=== PATIENT | female | born 1970 | race Caucasian/White ===

== ENCOUNTER 2021-03-14 16:32 | Inpatient (IN) | payer OTHER ==
[~2021-03-14] VITALS: Ht 162.6 cm; Wt 62.6 kg
--- NOTE | 2021-03-14 16:32 | NUR ---
PT BIB SELF C/O LLQ ABDOMINAL AND R FLANK PAIN STARTED ALST NIGHT. 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 WILL CONTINUE TO MONITOR.
--- NOTE | 2021-03-14 16:54 | NUR ---
SEEN AND EXMAINED BY .
[2021-03-14] MEDS ORDERED: MORPHINE SULFATE INJ 4 MG/ML DISP.SYRIN ONE (16:59)
[2021-03-14] MEDS ORDERED: ONDANSETRON HCL/PF 4 MG/2 ML VIAL ONE (16:59)
[2021-03-14] MEDS ORDERED: KETOROLAC TROMETHAMINE 15 MG/ML VIAL ONE (16:59)
[2021-03-14] MEDS ORDERED: KETOROLAC TROMETHAMINE INJ 30 MG/ML VIAL IV ONE (17:00)
[2021-03-14] MEDS ORDERED: IV NS 0.9% 1,000 ML BAG IV ONE ×2 (17:00→20:00)
[2021-03-14] MEDS ORDERED: MORPHINE SULFATE INJ 2 MG/ML DISP.SYRIN IV ONE (17:00)
[2021-03-14] MEDS ORDERED: ONDANSETRON HCL/PF 4 MG/2 ML VIAL IVP ONE ×2 (17:00→19:30)
--- NOTE | 2021-03-14 17:00 | NUR ---
TORADOL GIVEN. PER PT HAD AN HYSTERECTOMY.
--- NOTE | 2021-03-14 17:00 | NUR ---
IV LINE ESTABLISHED BLOOD DRAWN AND SENT TO LAB.
[2021-03-14 17:21] LABS: BASOPHILS # (AUTO) 0.1 K/uL (0.0-0.2); BASOPHILS % (AUTO) 0.9 % (0.0-2.0); EOSINOPHILS % (AUTO) 1.4 % (0.0-6.0); HEMATOCRIT 36 % (33-45); HEMOGLOBIN 11.5 g/dL (11.5-14.8); LYMPHOCYTES # (AUTO) 1.7 K/uL (0.8-4.8); LYMPHOCYTES % (AUTO) 18.9 % (20.0-44.0); MEAN CORPUSCULAR HGB CONC 32 g/dl (31.0-36.0); MEAN CORPUSCULAR VOLUME 81 fL (82-100); MONOCYTES # (AUTO) 0.8 K/uL (0.1-1.30); MONOCYTES % (AUTO) 8.6 % (2.0-12.0); NEUTROPHILS # (AUTO) 6.1 K/uL (1.8-8.9); NEUTROPHILS % (AUTO) 70.2 % (43.0-81.0); PLATELET COUNT (AUTO) 290 K/uL (150-450); RED BLOOD CELL COUNT(AUTO) 4.38 MIL/uL (4.0-5.2); WHITE BLOOD COUNT (AUTO) 8.8 K/uL (4.3-11.0)
[2021-03-14 17:46] LABS: BILIRUBIN,URINE NEGATIVE (NEGATIVE); COLOR,URINE YELLOW (YELLOW); LEUKOCYTE ESTERASE ,URINE NEGATIVE (NEGATIVE); NITRITE, URINE NEGATIVE (NEGATIVE); PROTEIN,URINE NEGATIVE (NEGATIVE); UGLUCOSE NEGATIVE (NEGATIVE); UROBILINOGEN,URINE 0.2 EU/dL (0.2)
--- NOTE | 2021-03-14 18:00 | NUR ---
PT IS WHEELED TO CT SCAN VIA [facility].
[2021-03-14 18:13] LABS: ALBUMIN 3.6 g/dL (3.4-5.0); BILIRUBIN,DIRECT 0.1 mg/dL (0.0-0.2); BILIRUBIN,TOTAL 0.3 mg/dL (0.2-1.0); CALCIUM, SERUM 8.8 mg/dL (8.5-10.1); CREATININE 0.9 mg/dL (0.6-1.3); TOTAL PROTEIN, SERUM 7.4 g/dL (6.4-8.2)
[2021-03-14] MEDS ORDERED: HYDROMORPHONE INJ 2 MG/ML DISP.SYRIN IV ONE (19:30)
--- NOTE | 2021-03-14 19:44 | NUR ---
PT DECLINED MORPHINE AND DILAUDID. C/O PAIN 04/24 AT THIS TIME.
[2021-03-14] MEDS ORDERED: IV LR 1000 ML 1,000 ML IV PRN (20:00)
[2021-03-14] MEDS ORDERED: HYDROMORPHONE INJ 2 MG/ML DISP.SYRIN IV PRN (20:00)
[2021-03-14] MEDS ORDERED: ACETAMINOPHEN 325 MG TABLET PO PRN (20:00)
[2021-03-14] MEDS ORDERED: Z GUARD REMEDY 4 OZ OINT TP PRN (20:00)
[2021-03-14] MEDS ORDERED: CEFAZOLIN 1 GM VIAL IM ONE (20:30)
[2021-03-14] MEDS ORDERED: HYDROMORPHONE 1 MG/1 ML DISP.SYRIN ONE (20:47)
[2021-03-14] MEDS ORDERED: CEFAZOLIN 2 GM in IV D5W 100 ML IV SCH (21:00)
[2021-03-14] MEDS ORDERED: CEFAZOLIN 1 GM in IV D5W 50 ML IV ONE (21:00)
[2021-03-14] MEDS ORDERED: ONDANSETRON HCL/PF - ER 4 MG/2 ML VIAL IV ONE (21:30)
--- NOTE | 2021-03-14 22:56 | NUR ---
spoke with Nick Almanza regarding Ancef order. 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 Nick instruct that Ancef can be given prior to surgery. He is also aware that Dr. Church ordered a dose and will be be given tonight.
--- NOTE | 2021-03-14 23:05 | NUR ---
REPORT GIVEN TO TJ
--- NOTE | 2021-03-14 23:40 | NUR ---
PATIENT TRANSFERRED, VSS, NO ACUTE DISTRESS NOTED.
--- NOTE | 2021-03-14 23:41 | NUR ---
PT TRANSPORTED TO ROOM 316 VIA GURNEY. ALL PT BELONGINGS AND PT CHART TRANSFERRED WITH PATIENT. V/S STABLE AT TIME OF TRANSFER.
--- NOTE | 2021-03-14 23:45 | NUR ---
POEM WRITER NOTE RECEIVED PT FROM Nya VIA [facility]JGAN ACCOMPANIED BY RN/STAFF. PT AWAKE, ALERT, ABLE TO VERBALIZE ALL NEEDS. RESPIRATIONS EVEN/UNLABORED. ON RA AND STABLE. PT REPORTS ABD PAIN IS TOLERABLE AT THIS TIME. IV SITE: R-AC INTACT/PATENT/FLUSHES WELL. ORIENTED TO UNIT AND STAFF AND MADE COMFORTABLE IN BED. PT FOR SURGERY TOMORROW AND SHE VERBALIZED UNDERSTANDING. NO ACUTE DISTRESS NOTED. SAFETY MEASURES IN PLACE, BED IN LOWEST LOCKED POSITION, S/R UPX2, CALL LIGHT WITHIN REACH. WILL CONT TO MONITOR.
[2021-03-15] VITALS: BP 114/62
--- NOTE | 2021-03-15 01:04 | NUR ---
RN NOTE PER Nya RIOS, TO CALL IN-HOUSE PHARMACY IN A.M. RE ANCEF AND ANCEF WILL BE GIVEN IN THE A.M. SHIFT PER DR. PAREKH.
--- NOTE | 2021-03-15 06:50 | NUR ---
RN NOTE PT PICKED UP BY O.R. STAFF AND TAKEN DOWN TO O.R. VIA HER BED. REPORT GIVEN.
[2021-03-15] MEDS ORDERED: MIDAZOLAM HCL 2 MG/2ML VIAL ONE (06:54)
[2021-03-15] MEDS ORDERED: HYDROMORPHONE INJ 2 MG/ML DISP.SYRIN ONE (06:54)
[2021-03-15] MEDS ORDERED: ROCURONIUM BROMIDE 50 MG/5 ML ONE (06:54)
[2021-03-15 07:10] LABS: BASOPHILS % (AUTO) 0.8 % (0.0-2.0); EOSINOPHILS % (AUTO) 1.1 % (0.0-6.0); HEMATOCRIT 32 % (33-45); HEMOGLOBIN 10.3 g/dL (11.5-14.8); LYMPHOCYTES # (AUTO) 1.5 K/uL (0.8-4.8); LYMPHOCYTES % (AUTO) 24.3 % (20.0-44.0); MEAN CORPUSCULAR HGB CONC 33 g/dl (31.0-36.0); MEAN CORPUSCULAR VOLUME 81 fL (82-100); MONOCYTES # (AUTO) 0.7 K/uL (0.1-1.30); MONOCYTES % (AUTO) 10.9 % (2.0-12.0); NEUTROPHILS % (AUTO) 62.9 % (43.0-81.0); PLATELET COUNT (AUTO) 246 K/uL (150-450); RED BLOOD CELL COUNT(AUTO) 3.89 MIL/uL (4.0-5.2); WHITE BLOOD COUNT (AUTO) 6.4 K/uL (4.3-11.0)
[2021-03-15] MEDS ORDERED: MORPHINE SULFATE INJ 4 MG/ML DISP.SYRIN ONE (07:18)
[2021-03-15] MEDS ORDERED: BUPIVACAINE 0.25% 75 MG/30 ML VIAL ONE (07:20)
--- NOTE | 2021-03-15 07:42 | NUR ---
RN OPENING NOTES Patient seen comfortably lying in bed, no apparent distress noted, respirations even and unlabored, no shortness of breath, denies any pain or discomfort at this time, no grimacing. Call light left within reach, safety precautions in place, brakes locked, side rails up X 2, will monitor closely for any changes.
[2021-03-15 07:54] LABS: ALBUMIN 2.8 g/dL (3.4-5.0); BILIRUBIN,TOTAL 0.5 mg/dL (0.2-1.0); CALCIUM, SERUM 7.7 mg/dL (8.5-10.1); CREATININE 0.7 mg/dL (0.6-1.3); MAGNESIUM 1.8 mg/dL (1.8-2.4); PHOSPHORUS 2.8 mg/dL (2.5-4.9); POTASSIUM 3.7 mmol/L (3.5-5.1)
[2021-03-15] MEDS ORDERED: ESTR0.5T PO (08:11)
--- NOTE | 2021-03-15 09:35 | NUR ---
Patient came back from surgery around 0932am, stable condition, no apparent distress noted, denies any pain or discomfort at this time, no shortness of breath, afebrile, no respiratory distress. Patient came back with new orders noted and carried out by PACU nurse. Call light left within reach, will monitor closely for any changes.
[2021-03-15] MEDS: PANTOPRAZOLE 40 MG VIAL IV SCH (09:38)
[2021-03-15] MEDS ORDERED: MORPHINE SULFATE INJ 4 MG/ML DISP.SYRIN IV PRN ×2 (10:30→11:07)
[2021-03-15] MEDS: ONDANSETRON HCL/PF 4 MG/2 ML VIAL IVP PRN ×2 (10:59→16:22)
[2021-03-15] MEDS: ACETAMINOPHEN W/ CODEINE#3 1 EA TABLET PO PRN ×2 (14:37→23:27)
[2021-03-15] MEDS: ANCEF 1 GM/50 ML D5W IV SCH ×2 (15:03→23:28)
[2021-03-15 16:00] VITALS: BP 138/53
[2021-03-15] MEDS: IV D5 LR 1,000 ML IV PRN (16:12)
--- NOTE | 2021-03-15 18:42 | NUR ---
RN CLOSING NOTES Patient lying in bed, no SOB, respirations even and unlabored, no dizziness, no palpitations, remained afebrile during shift. Pain medication given as needed per MD order when non pharmacological measures ineffective. Patient S/P left salphingo-oophorectomy, dressings intact and dry, no visible blood, no unusual odor noted, no drainage at this time. Anti-nausea medication given as needed per MD order, noted with help, no vomiting, abdominal bowel sound present in all quadrant, grimacing noted when abdomen palpated. All medications given per MD order and tolerated well. Kept clean and dry, call light left within reach, all needs anticipated, aspiration precautions observed at all times, kept head of bed elevated, safety precautions in place, brakes locked, side rails up X 2, will endorse to next shift for continuity of care.
[2021-03-16 07:04] LABS: BASOPHILS # (AUTO) 0.1 K/uL (0.0-0.2); BASOPHILS % (AUTO) 0.6 % (0.0-2.0); HEMATOCRIT 31 % (33-45); HEMOGLOBIN 10.1 g/dL (11.5-14.8); LYMPHOCYTES # (AUTO) 2.2 K/uL (0.8-4.8); LYMPHOCYTES % (AUTO) 24.7 % (20.0-44.0); MEAN CORPUSCULAR HGB CONC 33 g/dl (31.0-36.0); MEAN CORPUSCULAR VOLUME 82 fL (82-100); MONOCYTES # (AUTO) 1.1 K/uL (0.1-1.30); MONOCYTES % (AUTO) 12.7 % (2.0-12.0); NEUTROPHILS # (AUTO) 5.4 K/uL (1.8-8.9); PLATELET COUNT (AUTO) 228 K/uL (150-450); RED BLOOD CELL COUNT(AUTO) 3.81 MIL/uL (4.0-5.2); WHITE BLOOD COUNT (AUTO) 8.9 K/uL (4.3-11.0)
[2021-03-16 07:15] LABS: CALCIUM, SERUM 8.1 mg/dL (8.5-10.1); CREATININE 0.7 mg/dL (0.6-1.3); POTASSIUM 3.6 mmol/L (3.5-5.1)
--- NOTE | 2021-03-16 07:30 | NUR ---
MS RN CLOSING NOTE PATIENT AWAKE IN BED, ALERT/ORIENTED X 3, PT ABLE TO MAKE NEEDS KNOWN. PT STABLE ON RA, NO S/S OF DISTRESS OR SOB NOTED, BREATHING EVEN AND UNLABORED. PT WAS ABLE TO USE BSC WITH ASSIST. RIGHT AC IV ACCESS RUNNING ANCEF @ 100 ML/HR. MEDICATIONS GIVEN ORDERED, PT NEEDS MET THROUGHOUT SHIFT. SAFETY MEASURES IN PLACE: CALL LIGHT WITHIN REACH, SIDE RAILS UP X 2, BED LOCKED IN LOW POSITION, BED ALARM ON. ENDORSED TO DAY SHIFT NURSE FOR CONTINUITY OF CARE
[2021-03-16] MEDS: IV D5 LR 1,000 ML IV PRN (07:32)
[2021-03-16] MEDS: ACETAMINOPHEN W/ CODEINE#3 1 EA TABLET PO PRN (07:33)
[2021-03-16] MEDS: ANCEF 1 GM/50 ML D5W IV SCH (07:33)
[2021-03-16 08:00] VITALS: BP 122/67
[2021-03-16] MEDS: ONDANSETRON HCL/PF 4 MG/2 ML VIAL IVP PRN (08:24)
[2021-03-16] MEDS: PANTOPRAZOLE 40 MG VIAL IV SCH (08:24)
[2021-03-16 16:00] VITALS: BP 104/70
--- NOTE | 2021-03-16 19:30 | NUR ---
Patient to be discharged home today, no apparent distress noted, no shortness of breath, respirations even and unlabored, denies any pain or discomfort, no nausea, no vomiting, abdominal bowel sounds present in all quadrants, per patient able to pass gas, able to tolerate mechanical soft diet, ate 25-50% of her meals, able to ambulate and tolerated well. Patient made aware of the situation, she signed all discharge paper works, all belongings taken, inventory list signed by patient and filed in her chart. Health teaching provided, verbalized understanding and gratitude. Reminded resident to schedule a follow up with Dr. Stephens ([facility]) and to avoid heavy lifting, avoid straining abdomen, do not put pressure on abdominal site, and not to take tub baths until seen by Dr Stephens, verbalized understanding and gratitude. Skin assessment done prior to discharge, skin intact, warm to touch, no pallor or cyanosis noted. Patient has dry and intact surgical dressings on her abdominal site, per DOPE HOUSE OPERATOR HELPER, Dr. Stephens stated not to touch or remove dressing. Peripheral IV line removed prior to discharge, complete and intact, no excessive bleeding noted, site covered with dry dressing. Name wristband removed prior to discharge, surgical mask provided for patient to use. RN assisted patient going to the hospital parking lot via wheelchair, left unit at 1914pm with , stable condition, exit care documents handed to patient
[2021-03-17] MEDS ORDERED: PANTOPRAZOLE 40 MG TABLET.DR PO SCH (07:30)
== END 2021-03-16 19:10 | disposition home or self-care (01) | DRG 743 ==
LOC: ER 16:46 → MED 22:54
PROVIDERS: ADMIT Hospitalist; ATTEND Hospitalist
PROC: 0UT60ZZ Resection of Left Fallopian Tube, Open Approach (ICD-10-PCS; principal; 2021-03-15)
PROC: 0UT10ZZ Resection of Left Ovary, Open Approach (ICD-10-PCS; 2021-03-15)
PROC: 0DNE0ZZ Release Large Intestine, Open Approach (ICD-10-PCS; 2021-03-15)
DX: N83.512 Torsion of left ovary and ovarian pedicle (principal); Z20.822 Contact with and (suspected) exposure to COVID-19; Z87.442 Personal history of urinary calculi; Z90.710 Acquired absence of both cervix and uterus; K76.89 Other specified diseases of liver; R91.8 Other nonspecific abnormal finding of lung field; K66.0 Peritoneal adhesions (postprocedural) (postinfection)
CPT/HCPCS: 36415; 71045-TC; 76856-TC; 80048-TC; 80053-TC; 80076-TC; 83690-TC; 83735-TC; 84100-TC; 84703-TC; 85025-TC; 85730-TC; 86850-TC; 87081-TC; 88305-TC; 97116-TC; 97530-TC; A6209; A6253; C9113; C9803; G0378; J0330; J0690; J1100; J1170; J1885; J2250; J2270; J2405; J2704; J2765; J3490; J7030; J7060; J7120